=== PATIENT | male | born 1995 | race Caucasian/White ===

== ENCOUNTER 2017-07-27 01:18 | Emergency (ER) | payer OTHER ==
--- NOTE | 2017-07-27 02:12 | EDPHYS ---
Physician Documentation [facility] Name: Rob Parrsih Age: 21 yrs Sex: Male : 1995 Arrival Date: 07/27/2017 Time: 01:22 Bed 14 Private MD: Stephane Banda R ED Physician Justice Baldwin HPI: 07/27 02:09 This 21 yrs old Male presents to ER via Ambulatory with complaints of kb Toothache, Vomiting. 02:09 The patient presents with pain. The problem is located in the lower left third molar kb (#17) and upper left third molar (#16). Onset: The symptoms/episode began/occurred yesterday, at 15:00. Duration: The symptoms are continuous, and are steadily getting worse. Modifying factors: The symptoms are alleviated by nothing, the symptoms are aggravated by nothing. Associated signs and symptoms: Pertinent positives: pain, vomiting, Pertinent negatives: anorexia, chills, dysphagia, fever, inability to eat, nausea, redness in area, swelling. Severity of symptoms: At their worst the symptoms were severe, in the emergency department the symptoms are unchanged. The patient has experienced a previous episode. The patient has not recently seen a physician. Pt states his wisdom teeth are growing in sideways. Was told to have them removed but hasn't been able to yet. STarted having pain at 1500 yesterday, ate ice cream to see if that would help, but it made it worse. . Historical: - Allergies: 02:00 No Known Allergies; bb - Home Meds: 02:00 None [Active]; bb - PMHx: 02:00 None; bb - PSHx: 02:00 None; bb - Immunization history:: Adult Immunizations up to date. - Social history:: Smoking status: Patient uses tobacco products, smokes one pack cigarettes per day. Patient/guardian denies using alcohol, street drugs. ROS: 02:08 Constitutional: Negative for fever, chills, and weight loss, Cardiovascular: Negative kb for chest pain, palpitations, and edema, Respiratory: Negative for shortness of breath, cough, wheezing, and pleuritic chest pain, Abdomen/GI: Negative for abdominal pain, nausea, vomiting, diarrhea, and constipation, MS/Extremity: Negative for injury and deformity, Skin: Negative for injury, rash, and discoloration, Neuro: Negative for headache, weakness, numbness, tingling, and seizure. 02:08 ENT: Positive for dental pain, Negative for sore throat. Exam: 02:08 Constitutional: This is a well developed, well nourished patient who is awake, alert, kb and in no acute distress. Head/Face: Normocephalic, atraumatic. Chest/axilla: Normal chest wall appearance and motion. Nontender with no deformity. No lesions are appreciated. Cardiovascular: Regular rate and rhythm with a normal S1 and S2. No gallops, murmurs, or rubs. Normal PMI, no JVD. No pulse deficits. Respiratory: Lungs have equal breath sounds bilaterally, clear to auscultation and percussion. No rales, rhonchi or wheezes noted. No increased work of breathing, no retractions or nasal flaring. Abdomen/GI: Soft, non-tender, with normal bowel sounds. No distension or tympany. No guarding or rebound. No evidence of tenderness throughout. Skin: Warm, dry with normal turgor. Normal color with no rashes, no lesions, and no evidence of cellulitis. MS/ Extremity: Pulses equal, no cyanosis. Neurovascular intact. Full, normal range of motion. Neuro: Awake and alert, GCS 15, oriented to person, place, time, and situation. Cranial nerves II-XII grossly intact. Motor strength 5/5 in all extremities. Sensory grossly intact. Cerebellar exam normal. Normal gait. 02:08 ENT: Dental exam: pain, that is moderate, specifically in the upper left third molar (#16) and lower left third molar (#17). Vital Signs: 02:00 BP 130 / 78; Pulse 76; Resp 18; Temp 98.1(O); Pulse Ox 98% on R/A; Weight 116.57 kg bb (R); Height 5 ft. 8 in. (172.72 cm) (R); Pain 8/10; 02:00 Body Mass Index 39.08 (116.57 kg, 172.72 cm) bb MDM: 02:02 Patient medically screened. kb 02:08 Data reviewed: vital signs, nurses notes. Data interpreted: Pulse oximetry: on room air kb is 98 %. Interpretation: normal. Counseling: I had a detailed discussion with the patient and/or guardian regarding: the historical points, exam findings, and any diagnostic results supporting the discharge/admit diagnosis, the need for outpatient follow up, a dentist, to return to the emergency department if symptoms worsen or persist or if there are any questions or concerns that arise at home. Administered Medications: 02:42 Drug: Alsey (7.5 mg-325 mg) 1 tabs Route: PO; jd3 02:42 Follow up: Response: Medication administered at discharge. jd3 Disposition: 07/27/17 02:11 Discharged to Home. Impression: Toothache. - Condition is Stable. - Discharge Instructions: Dental Pain, [id number]. - Work release form, Medication Reconciliation Form, Thank You Letter, Antibiotic Education, Prescription Opioid Use form. - Follow up: Emergency Department; When: As needed; Reason: Worsening of condition. Follow up: Private Physician; When: 2 - 3 days; Reason: Recheck today's complaints, Continuance of care, Re-evaluation by your physician. Addendum: 07/28/2017 19:01 Co-signature as Attending Physician, Justice Baldwin MD I agree with the assessment and c power plan of care. Signatures: Ivone Roach, SHRIMP CLEANER-C SHRIMP CLEANER-Ckb Justice Baldwin MD MD cha Ballard, Brenda, RN RN Viktor Denise RN RN jd3
--- NOTE | 2017-07-27 02:12 | ER ---
Nurse's Notes [facility] Name: Rob Parrish Age: 21 yrs Sex: Male : 1995 Arrival Date: 07/27/2017 Time: 01:22 Bed 14 Private MD: Stephane Banda R Diagnosis: Toothache Presentation: 07/27 01:59 Presenting complaint: Patient states: he has a toothache so bad it is causing him to bb vomit, pain is on the left side and is 8/10. Transition of care: patient was not received from another setting of care. Onset of symptoms was July 26, 2017. Initial Sepsis Screen: Does the patient meet any 2 criteria? No. Patient's initial sepsis screen is negative. Does the patient have a suspected source of infection? No. Patient's initial sepsis screen is negative. Care prior to arrival: None. 01:59 Method Of Arrival: Ambulatory bb 01:59 Acuity: ARLEY 5 bb Historical: - Allergies: 02:00 No Known Allergies; bb - Home Meds: 02:00 None [Active]; bb - PMHx: 02:00 None; bb - PSHx: 02:00 None; bb - Immunization history:: Adult Immunizations up to date. - Social history:: Smoking status: Patient uses tobacco products, smokes one pack cigarettes per day. Patient/guardian denies using alcohol, street drugs. Screenin:07 Abuse screen: Denies threats or abuse. Nutritional screening: No deficits noted. jd3 Tuberculosis screening: No symptoms or risk factors identified. Fall Risk None identified. Assessment: 02:03 General: Appears in no apparent distress. uncomfortable, Behavior is calm, cooperative, jd3 appropriate for age. Pain: Complains of pain in mouth Quality of pain is described as aching, sharp. Neuro: Level of Consciousness is awake, alert, obeys commands, Oriented to person, place, time, situation. Cardiovascular: Heart tones S1 S2 present Capillary refill < 3 seconds Patient's skin is warm and dry. Respiratory: Airway is patent Respiratory effort is even, unlabored, Respiratory pattern is regular, symmetrical, Breath sounds are clear bilaterally. GI: Abdomen is round Bowel sounds present X 4 quads. Abd is soft and non tender X 4 quads. Reports nausea. : No signs and/or symptoms were reported regarding the genitourinary system. EENT: Reports being seen by a dentist about 1 year ago and was told he needed his wisdom teeth removed. pt reports not being able to see a dentist again for a fallow up/surgery.. Derm: Skin is intact, Skin is dry, Skin is normal, Skin temperature is warm. Musculoskeletal: Circulation, motion, and sensation intact. Range of motion: intact in all extremities. 02:45 Reassessment: Patient appears in no apparent distress at this time. Patient and/or jd3 family updated on plan of care and expected duration. Pain level reassessed. Patient is alert, oriented x 3, equal unlabored respirations, skin warm/dry/pink. pt reported understanding of discharge instructions, even and steady gait upon discharge. Vital Signs: 02:00 BP 130 / 78; Pulse 76; Resp 18; Temp 98.1(O); Pulse Ox 98% on R/A; Weight 116.57 kg bb (R); Height 5 ft. 8 in. (172.72 cm) (R); Pain 8/10; 02:00 Body Mass Index 39.08 (116.57 kg, 172.72 cm) bb ED Course: 01:22 Patient arrived in ED. do 01:22 Stephane Banda MD is Private Physician. do 02:00 Triage completed. bb 02:00 Arm band placed on Patient placed in an exam room, on a stretcher. Family accompanied bb patient. 02:02 Ivone Roach [facility]C [facility]. kb 02:02 Justice Baldwin MD is Attending Physician. kb 02:03 Viktor Reynoso RN is Primary Nurse. jd3 02:08 Patient has correct armband on for positive identification. Bed in low position. Call jd3 light in reach. Side rails up X 1. Adult w/ patient. 02:44 No provider procedures requiring assistance completed. Patient did not have IV access jd3 during this emergency room visit. Administered Medications: 02:42 Drug: Garden (7.5 mg-325 mg) 1 tabs Route: PO; jd3 02:42 Follow up: Response: Medication administered at discharge. jd3 Outcome: 02:11 Discharge ordered by . kb 02:45 Discharged to home ambulatory, with family. jd3 02:45 Condition: stable 02:45 Discharge instructions given to patient, family, Instructed on discharge instructions, follow up and referral plans. Demonstrated understanding of instructions, follow-up care. 02:46 Patient left the ED. jd3 Signatures: Ivone Roach, CRAIG-Karol SRINIVASAN-Erika Babin, RN RN Laura Manzano Jonathon, RN RN jd3
[2017-07-27] MEDS ORDERED: HYDROCODONE/APAP 7.5/325 MG TAB ONE (02:36)
== END 2017-07-27 02:46 | disposition home or self-care (01) ==
LOC: ER 01:18
DX: K08.89 Other specified disorders of teeth and supporting structures (principal); F17.210 Nicotine dependence, cigarettes, uncomplicated
CPT/HCPCS: 99283

== ENCOUNTER 2017-10-25 15:33 | Emergency (ER) | payer OTHER ==
--- NOTE | 2017-10-25 16:30 | ER ---
Nurse's Notes [facility] Name: Rob Parrish Age: 22 yrs Sex: Male : 1995 Arrival Date: 10/25/2017 Time: 15:35 Bed 14 Private MD: Stephane Banda R Diagnosis: Encounter for screening, unspecified Presentation: 10/25 15:36 Presenting complaint: Patient states: got home from work yesterday, when i checked my hj BP, it was high, around 180 SBP; denies headache, nausea and vomiting;. Transition of care: patient was not received from another setting of care. Onset of symptoms was October 25, 2017. Risk Assessment: Do you want to hurt yourself or someone else? Patient reports no desire to harm self or others. Initial Sepsis Screen: Does the patient meet any 2 criteria? No. Patient's initial sepsis screen is negative. Does the patient have a suspected source of infection? No. Patient's initial sepsis screen is negative. Care prior to arrival: None. 15:36 Method Of Arrival: Ambulatory 15:36 Acuity: ARLEY 3 hj Triage Assessment: 15:38 General: Appears in no apparent distress. uncomfortable, Behavior is calm, cooperative, hj appropriate for age. Pain: Denies pain. Historical: - Allergies: 15:38 No Known Allergies; hj - Home Meds: 15:38 None [Active]; hj - PMHx: 15:38 Hypertension; hj - PSHx: 15:38 None; hj - Immunization history:: Adult Immunizations up to date. - Social history:: Smoking status: Patient/guardian denies using tobacco, Patient/guardian denies using alcohol. - Ebola Screening: : Patient negative for fever greater than or equal to 101.5 degrees Fahrenheit, and additional compatible Ebola Virus Disease symptoms Patient denies exposure to infectious person Patient denies travel to an Ebola-affected area in the 21 days before illness onset. Screenin:39 Abuse screen: Denies threats or abuse. Denies injuries from another. Nutritional hj screening: No deficits noted. Tuberculosis screening: No symptoms or risk factors identified. Fall Risk None identified. Assessment: 15:58 General: Appears in no apparent distress. comfortable, Behavior is calm, cooperative, aj appropriate for age. Pain: Denies pain. Neuro: Level of Consciousness is awake, alert, obeys commands, Oriented to person, place, time, situation, Appropriate for age. Respiratory: Airway is patent Respiratory effort is even, unlabored, Respiratory pattern is regular, symmetrical. Derm: Skin is intact, is healthy with good turgor, Skin is pink, warm \T\ dry. normal. Vital Signs: 15:39 BP 133 / 75; Pulse 92; Resp 18; Temp 98.3(O); Pulse Ox 100% on R/A; Weight 68.04 kg; hj Height 5 ft. 8 in. (172.72 cm); Pain 0/10; 15:39 Body Mass Index 22.81 (68.04 kg, 172.72 cm) ED Course: 15:35 Patient arrived in ED. sb2 15:36 Stephane Banda MD is Private Physician. sb2 15:38 Triage completed. hj 15:38 Arm band placed on left wrist. hj 15:38 Patient has correct armband on for positive identification. Bed in low position. Call light in reach. Side rails up X 1. Adult w/ patient. 15:42 Smooth Paieg MD is Attending Physician. 15:57 Leola Black RN is Primary Nurse. aj 16:05 No provider procedures requiring assistance completed. Patient did not have IV access aj during this emergency room visit. Administered Medications: No medications were administered Outcome: 16:05 Medical screen evaluation completed per provider. Patient declined treatment. aj 16:29 Discharge ordered by . 16:31 Patient left the ED. aj Signatures: Leola Black RN RN Maksim Tran RN RN Smooth Paige MD MD Stacie Ruiz sb2 Corrections: (The following items were deleted from the chart) 15:41 15:39 Pulse 92bpm; Resp 18bpm; Pulse Ox 100% RA; Temp 98.3F Oral; 68.04 kg; Height 5 hj ft. 8 in.; BMI: 22.8; Pain 0/10;
--- NOTE | 2017-10-25 16:30 | EDPHYS ---
Physician Documentation [facility] Name: Rob Parrish Age: 22 yrs Sex: Male : 1995 Arrival Date: 10/25/2017 Time: 15:35 Bed 14 Private MD: Stephane Banda R ED Physician Smooth Paige HPI: 10/25 16:47 This 22 yrs old Male presents to ER via Ambulatory with complaints of High gs Blood Pressure. 16:47 The patient has elevated blood pressure and discovered this during work physical. gs Onset: The symptoms/episode began/occurred 2 day(s) ago. Modifying factors: The symptoms are aggravated by activity. Associated signs and symptoms: Pertinent negatives: chest pain, dizziness, dyspnea, headache. Severity of symptoms: At its worst the blood pressure was severe, 2 day(s) ago, in the emergency department the blood pressure is improved, markedly. The patient has experienced similar episodes in the past, a few times. Historical: - Allergies: 15:38 No Known Allergies; hj - Home Meds: 15:38 None [Active]; hj - PMHx: 15:38 Hypertension; hj - PSHx: 15:38 None; hj - Immunization history:: Adult Immunizations up to date. - Social history:: Smoking status: Patient/guardian denies using tobacco, Patient/guardian denies using alcohol. - Ebola Screening: : Patient negative for fever greater than or equal to 101.5 degrees Fahrenheit, and additional compatible Ebola Virus Disease symptoms Patient denies exposure to infectious person Patient denies travel to an Ebola-affected area in the 21 days before illness onset. ROS: 16:47 All other systems are negative. gs Exam: 16:47 Head/Face: Normocephalic, atraumatic. Eyes: Pupils equal round and reactive to light, gs extra-ocular motions intact. Lids and lashes normal. Conjunctiva and sclera are non-icteric and not injected. Cornea within normal limits. Periorbital areas with no swelling, redness, or edema. ENT: Nares patent. No nasal discharge, no septal abnormalities noted. Tympanic membranes are normal and external auditory canals are clear. Oropharynx with no redness, swelling, or masses, exudates, or evidence of obstruction, uvula midline. Mucous membranes moist. Neck: Trachea midline, no thyromegaly or masses palpated, and no cervical lymphadenopathy. Supple, full range of motion without nuchal rigidity, or vertebral point tenderness. No Meningismus. Chest/axilla: Normal chest wall appearance and motion. Nontender with no deformity. No lesions are appreciated. Cardiovascular: Regular rate and rhythm with a normal S1 and S2. No gallops, murmurs, or rubs. Normal PMI, no JVD. No pulse deficits. Respiratory: Lungs have equal breath sounds bilaterally, clear to auscultation and percussion. No rales, rhonchi or wheezes noted. No increased work of breathing, no retractions or nasal flaring. Abdomen/GI: Soft, non-tender, with normal bowel sounds. No distension or tympany. No guarding or rebound. No evidence of tenderness throughout. Back: No spinal tenderness. No costovertebral tenderness. Full range of motion. Skin: Warm, dry with normal turgor. Normal color with no rashes, no lesions, and no evidence of cellulitis. MS/ Extremity: Pulses equal, no cyanosis. Neurovascular intact. Full, normal range of motion. Neuro: Awake and alert, GCS 15, oriented to person, place, time, and situation. Cranial nerves II-XII grossly intact. Motor strength 5/5 in all extremities. Sensory grossly intact. Cerebellar exam normal. Normal gait. 16:47 Constitutional: The patient appears alert, awake. Vital Signs: 15:39 BP 133 / 75; Pulse 92; Resp 18; Temp 98.3(O); Pulse Ox 100% on R/A; Weight 68.04 kg; Height 5 ft. 8 in. (172.72 cm); Pain 0/10; 15:39 Body Mass Index 22.81 (68.04 kg, 172.72 cm) MDM: 15:54 Patient medically screened. 16:47 Differential diagnosis: hypertensive crisis, Malignant HTN. Data reviewed: vital signs, nurses notes. Response to treatment: the patient's symptoms have markedly improved after treatment, and as a result, I will discharge patient. 16:47 ED course: pt requested signing rtw form pt attested to being able to perform all gs duties and safety rules. . Administered Medications: No medications were administered Disposition: 10/25/17 16:29 Discharged to Home. Impression: Encounter for screening, unspecified. - Condition is Stable. - Discharge Instructions: Managing Your High Blood Pressure. - Medication Reconciliation Form, Thank You Letter, Antibiotic Education, Prescription Opioid Use form. - Follow up: Private Physician; When: 2 - 3 days; Reason: Re-evaluation by your physician. Signatures: Leola Black RN RN aj Joaquin, Henry, RN RN hj Starr, Gregory, MD MD gs Corrections: (The following items were deleted from the chart) 16:31 16:29 10/25/2017 16:29 Discharged to Home. Impression: Encounter for screening, aj unspecified. Condition is Stable. Forms are Medication Reconciliation Form, Thank You Letter, Antibiotic Education, Prescription Opioid Use. Follow up: Private Physician; When: 2 - 3 days; Reason: Re-evaluation by your physician. gs
== END 2017-10-25 16:31 | disposition home or self-care (01) ==
LOC: ER 15:33
DX: I10 Essential (primary) hypertension (principal)
CPT/HCPCS: 99281

== ENCOUNTER 2017-11-20 14:00 | Emergency (ER) | payer OTHER ==
--- NOTE | 2017-11-20 15:21 | EDPHYS ---
Physician Documentation [facility] Name: Rob Parrish Age: 22 yrs Sex: Male : 1995 Arrival Date: 11/20/2017 Time: 14:03 Bed 12 Private MD: Stephane Banda R ED Physician Jadiel Valentino HPI: 11/20 15:19 This 22 yrs old Male presents to ER via Ambulatory with complaints of Needs pm1 work note. 15:19 Patient with complaints of headache and weakness at work on Tuesday. Patient has had pm1 similar headaches in the past. Patient's symptoms have resolved and he is presenting to the ER for a work release to return to work tomorrow. Patient has no complaints. Historical: - Allergies: 14:26 No Known Allergies; hb - PMHx: 14:26 Hypertension; hb - PSHx: 14:26 None; hb - Immunization history:: Adult Immunizations not up to date. - Social history:: Smoking status: Patient/guardian denies using tobacco. - Ebola Screening: : Patient negative for fever greater than or equal to 101.5 degrees Fahrenheit, and additional compatible Ebola Virus Disease symptoms Patient denies exposure to infectious person Patient denies travel to an Ebola-affected area in the 21 days before illness onset No symptoms or risks identified at this time. ROS: 15:19 Constitutional: Negative for fever, chills, and weight loss, Eyes: Negative for injury, pm1 pain, redness, and discharge, ENT: Negative for injury, pain, and discharge, Neck: Negative for injury, pain, and swelling, Cardiovascular: Negative for chest pain, palpitations, and edema, Respiratory: Negative for shortness of breath, cough, wheezing, and pleuritic chest pain, Abdomen/GI: Negative for abdominal pain, nausea, vomiting, diarrhea, and constipation, Back: Negative for injury and pain, : Negative for injury, bleeding, discharge, and swelling, MS/Extremity: Negative for injury and deformity, Skin: Negative for injury, rash, and discoloration, Neuro: Negative for headache, weakness, numbness, tingling, and seizure. Exam: 15:19 Constitutional: This is a well developed, well nourished patient who is awake, alert, pm1 and in no acute distress. Head/Face: Normocephalic, atraumatic. Eyes: Pupils equal round and reactive to light, extra-ocular motions intact. Lids and lashes normal. Conjunctiva and sclera are non-icteric and not injected. Cornea within normal limits. Periorbital areas with no swelling, redness, or edema. ENT: Nares patent. No nasal discharge, no septal abnormalities noted. Tympanic membranes are normal and external auditory canals are clear. Oropharynx with no redness, swelling, or masses, exudates, or evidence of obstruction, uvula midline. Mucous membranes moist. Neck: Trachea midline, no thyromegaly or masses palpated, and no cervical lymphadenopathy. Supple, full range of motion without nuchal rigidity, or vertebral point tenderness. No Meningismus. Chest/axilla: Normal chest wall appearance and motion. Nontender with no deformity. No lesions are appreciated. Cardiovascular: Regular rate and rhythm with a normal S1 and S2. No gallops, murmurs, or rubs. Normal PMI, no JVD. No pulse deficits. Respiratory: Lungs have equal breath sounds bilaterally, clear to auscultation and percussion. No rales, rhonchi or wheezes noted. No increased work of breathing, no retractions or nasal flaring. Abdomen/GI: Soft, non-tender, with normal bowel sounds. No distension or tympany. No guarding or rebound. No evidence of tenderness throughout. Back: No spinal tenderness. No costovertebral tenderness. Full range of motion. Skin: Warm, dry with normal turgor. Normal color with no rashes, no lesions, and no evidence of cellulitis. MS/ Extremity: Pulses equal, no cyanosis. Neurovascular intact. Full, normal range of motion. 15:19 Neuro: Orientation: is normal, Cranial nerves: CN II- XII are normal as tested, Cerebellar function: normal finger to nose testing, Motor: is normal, moves all fours, Sensation: is normal, no obvious gross deficits, Gait: is steady, at a normal pace, without difficulty. Vital Signs: 14:31 BP 144 / 79; Pulse 90; Resp 16; Temp 98.4; Pulse Ox 100% on R/A; Pain 0/10; hb MDM: 14:56 Patient medically screened. pm1 15:19 Data reviewed: vital signs. Data interpreted: Pulse oximetry: on room air is 100 %. pm1 Interpretation: normal. Counseling: I had a detailed discussion with the patient and/or guardian regarding: the historical points, exam findings, and any diagnostic results supporting the discharge/admit diagnosis, the need for outpatient follow up, to return to the emergency department if symptoms worsen or persist or if there are any questions or concerns that arise at home. Administered Medications: No medications were administered Disposition: 17:51 Co-signature as Attending Physician, Jadiel Valentino MD. rn Disposition: 11/20/17 15:20 Discharged to Home. Impression: Encounter for medical screening. - Condition is Stable. - Work release form, Medication Reconciliation Form, Thank You Letter form. - Follow up: Private Physician; When: 2 - 3 days; Reason: Recheck today's complaints, Continuance of care, Re-evaluation by your physician. - Problem is new. - Symptoms have improved. Signatures: Jadiel Valentino MD MD rn Douglas Pereira, FIRE SAFETY INSPECTOR FIRE SAFETY INSPECTOR pm1 Teetee Smith RN RN hb Corrections: (The following items were deleted from the chart) 15:21 15:20 11/20/2017 15:20 Discharged to Home. Impression: Encounter for general adult pm1 medical examination without abnormal findings. Condition is Stable. Forms are Medication Reconciliation Form, Thank You Letter, Antibiotic Education, Prescription Opioid Use. Follow up: Private Physician; When: 2 - 3 days; Reason: Recheck today's complaints, Continuance of care, Re-evaluation by your physician. Problem is new. Symptoms have improved. pm1 15:30 15:21 11/20/2017 15:20 Discharged to Home. Impression: Encounter for medical screening. hb Condition is Stable. Forms are Medication Reconciliation Form, Thank You Letter, Antibiotic Education, Prescription Opioid Use. Follow up: Private Physician; When: 2 - 3 days; Reason: Recheck today's complaints, Continuance of care, Re-evaluation by your physician. Problem is new. Symptoms have improved. pm1
--- NOTE | 2017-11-20 15:21 | ER ---
Nurse's Notes [facility] Name: Rob Parrish Age: 22 yrs Sex: Male : 1995 Arrival Date: 11/20/2017 Time: 14:03 Bed 12 Private MD: Stephane Banda R Diagnosis: Encounter for medical screening Presentation: 11/20 14:31 Presenting complaint: Patient states: Sent home from work [employer] J with headache and hb weakness, needs return to work note. Transition of care: patient was not received from another setting of care. Onset of symptoms was November 20, 2017. Risk Assessment: Do you want to hurt yourself or someone else? Patient reports no desire to harm self or others. Care prior to arrival: None. 14:31 Method Of Arrival: Ambulatory hb 14:31 Acuity: ARLEY 5 hb 14:55 Initial Sepsis Screen: Does the patient meet any 2 criteria? No. Patient's initial hb sepsis screen is negative. Does the patient have a suspected source of infection? No. Patient's initial sepsis screen is negative. Historical: - Allergies: 14:26 No Known Allergies; hb - PMHx: 14:26 Hypertension; hb - PSHx: 14:26 None; hb - Immunization history:: Adult Immunizations not up to date. - Social history:: Smoking status: Patient/guardian denies using tobacco. - Ebola Screening: : Patient negative for fever greater than or equal to 101.5 degrees Fahrenheit, and additional compatible Ebola Virus Disease symptoms Patient denies exposure to infectious person Patient denies travel to an Ebola-affected area in the 21 days before illness onset No symptoms or risks identified at this time. Screenin:55 Abuse screen: Denies threats or abuse. Denies injuries from another. Nutritional hb screening: No deficits noted. Tuberculosis screening: No symptoms or risk factors identified. Fall Risk None identified. Assessment: 14:45 General: Appears in no apparent distress. Behavior is calm, cooperative. Pain: Denies hb pain. Neuro: Level of Consciousness is awake, alert, obeys commands, Oriented to person, place, time, situation. Cardiovascular: Capillary refill < 3 seconds Patient's skin is warm and dry. Respiratory: Airway is patent Trachea midline Respiratory effort is even, unlabored, Respiratory pattern is regular, symmetrical. Vital Signs: 14:31 BP 144 / 79; Pulse 90; Resp 16; Temp 98.4; Pulse Ox 100% on R/A; Pain 0/10; hb ED Course: 14:03 Patient arrived in ED. sb2 14:03 Stephane Banda MD is Private Physician. sb2 14:26 Arm band placed on. hb 14:31 Triage completed. hb 14:54 Teetee Smith, RN is Primary Nurse. hb 14:55 Douglas Pereira NP [facility]. pm1 14:55 Jadiel Valentino MD is Attending Physician. pm1 14:55 Patient has correct armband on for positive identification. Call light in reach. hb 15:29 No provider procedures requiring assistance completed. Patient did not have IV access hb during this emergency room visit. Administered Medications: No medications were administered Outcome: 15:20 Discharge ordered by . pm1 15:29 Discharged to home ambulatory. hb 15:29 Condition: stable 15:29 Discharge instructions given to patient, Instructed on discharge instructions, follow up and referral plans. medication usage, Demonstrated understanding of instructions, follow-up care. 15:30 Patient left the ED. hb Signatures: Douglas Pereira NP STITCHER HAND pm1 Teetee Smith, RN RN RasheedabrilStacie hoskins sb2
== END 2017-11-20 15:30 | disposition home or self-care (01) ==
LOC: ER 14:00
DX: Z00.00 Encounter for general adult medical examination without abnormal findings (principal); I10 Essential (primary) hypertension
CPT/HCPCS: 99281

== ENCOUNTER 2018-05-20 16:53 | Emergency (ER) | payer OTHER ==
--- NOTE | 2018-05-20 17:16 | ER ---
Nurse's Notes [facility] Name: Rob Parrish Age: 22 yrs Sex: Male : 1995 Arrival Date: 05/20/2018 Time: 16:55 Bed Waiting Private MD: Stephane Banda R Diagnosis: Toothache Presentation: 05/20 17:00 Presenting complaint: Patient states: dental pain for 30 minutes. Transition of care: la1 patient was not received from another setting of care. Onset of symptoms was May 20, 2018. Risk Assessment: Do you want to hurt yourself or someone else? Patient reports no desire to harm self or others. Initial Sepsis Screen: Does the patient meet any 2 criteria? No. Patient's initial sepsis screen is negative. Does the patient have a suspected source of infection? No. Patient's initial sepsis screen is negative. Care prior to arrival: None. 17:00 Method Of Arrival: Ambulatory la1 17:00 Acuity: ARLEY 5 la1 Historical: - Allergies: 17:00 No Known Allergies; la1 - PMHx: 17:00 Hypertension; la1 - Immunization history:: Adult Immunizations up to date. - Social history:: Smoking status: Patient uses tobacco products, smokes one pack cigarettes per day. - Ebola Screening: : No symptoms or risks identified at this time. Screenin:02 Abuse screen: Denies threats or abuse. Nutritional screening: No deficits noted. la1 Tuberculosis screening: No symptoms or risk factors identified. Fall Risk None identified. Assessment: 17:01 General: Appears in no apparent distress. Behavior is calm, cooperative. Pain: la1 Complains of pain in upper right third molar. Neuro: Level of Consciousness is awake, alert, obeys commands. Cardiovascular: Capillary refill < 3 seconds Patient's skin is warm and dry. Respiratory: Airway is patent Respiratory effort is even, unlabored. EENT: Good dentition noted. Vital Signs: 17:00 BP 154 / 102; Pulse 90; Resp 16; Temp 97.5; Pulse Ox 98% on R/A; Weight 113.4 kg; la1 Height 5 ft. 8 in. (172.72 cm); 17:00 Body Mass Index 38.01 (113.40 kg, 172.72 cm) la1 ED Course: 16:55 Patient arrived in ED. sb2 16:55 Stephane Banda MD is Private Physician. sb2 16:56 Ivone Roach FNP-C is [facility]. kb 16:56 Jadiel Valentino MD is Attending Physician. kb 17:00 Triage completed. la1 17:00 Arm band placed on left wrist. la1 17:02 Patient has correct armband on for positive identification. la1 17:02 No provider procedures requiring assistance completed. Patient did not have IV access la1 during this emergency room visit. Administered Medications: 17:20 Drug: Augmentin 875 mg Route: PO; hb 17:20 Drug: [place] 5 mg-325 mg 1 tabs Route: PO; hb Outcome: 17:02 Discharged to home ambulatory. la1 17:02 Condition: stable 17:02 Discharge instructions given to patient, Instructed on discharge instructions, follow up and referral plans. medication usage, Demonstrated understanding of instructions, follow-up care, medications, Prescriptions given X 2. 17:15 Discharge ordered by MD. kb 17:21 Patient left the ED. hb Signatures: Ivone Roach FNP-C FNP-Seferino Garner, RN RN la1 Teetee Smith, RN RN Stacie Ruiz sb2
--- NOTE | 2018-05-20 17:17 | EDPHYS ---
Physician Documentation [facility] Name: Rob Parrish Age: 22 yrs Sex: Male : 1995 Arrival Date: 05/20/2018 Time: 16:55 Bed Waiting Private MD: Stephane Banda R ED Physician Jadiel Valentino HPI: 05/20 17:14 This 22 yrs old Male presents to ER via Ambulatory with complaints of kb Toothache. 17:14 The patient presents with pain, redness. The problem is located in the upper right kb third molar. Onset: The symptoms/episode began/occurred suddenly, 30 minute(s) ago. Duration: The symptoms are continuous. Modifying factors: The symptoms are alleviated by nothing, the symptoms are aggravated by nothing. Associated signs and symptoms: Pertinent positives: redness in area, vomiting. Severity of symptoms: At their worst the symptoms were mild, moderate, in the emergency department the symptoms are unchanged. The patient has experienced similar episodes in the past, a few times. The patient has not recently seen a physician. Historical: - Allergies: 17:00 No Known Allergies; la1 - PMHx: 17:00 Hypertension; la1 - Immunization history:: Adult Immunizations up to date. - Social history:: Smoking status: Patient uses tobacco products, smokes one pack cigarettes per day. - Ebola Screening: : No symptoms or risks identified at this time. ROS: 17:05 Constitutional: Negative for fever, chills, and weight loss, Neck: Negative for injury, kb pain, and swelling, Cardiovascular: Negative for chest pain, palpitations, and edema, Respiratory: Negative for shortness of breath, cough, wheezing, and pleuritic chest pain, Abdomen/GI: Negative for abdominal pain, nausea, vomiting, diarrhea, and constipation, Back: Negative for injury and pain, MS/Extremity: Negative for injury and deformity, Skin: Negative for injury, rash, and discoloration, Neuro: Negative for headache, weakness, numbness, tingling, and seizure. 17:05 ENT: Positive for dental pain. Exam: 17:13 Constitutional: This is a well developed, well nourished patient who is awake, alert, kb and in no acute distress. Head/Face: Normocephalic, atraumatic. ENT: Nares patent. No nasal discharge, no septal abnormalities noted. Tympanic membranes are normal and external auditory canals are clear. Oropharynx with no redness, swelling, or masses, exudates, or evidence of obstruction, uvula midline. Mucous membranes moist. Neck: Trachea midline, no thyromegaly or masses palpated, and no cervical lymphadenopathy. Supple, full range of motion without nuchal rigidity, or vertebral point tenderness. No Meningismus. Chest/axilla: Normal chest wall appearance and motion. Nontender with no deformity. No lesions are appreciated. Cardiovascular: Regular rate and rhythm with a normal S1 and S2. No gallops, murmurs, or rubs. Normal PMI, no JVD. No pulse deficits. Respiratory: Lungs have equal breath sounds bilaterally, clear to auscultation and percussion. No rales, rhonchi or wheezes noted. No increased work of breathing, no retractions or nasal flaring. Abdomen/GI: Soft, non-tender, with normal bowel sounds. No distension or tympany. No guarding or rebound. No evidence of tenderness throughout. Skin: Warm, dry with normal turgor. Normal color with no rashes, no lesions, and no evidence of cellulitis. MS/ Extremity: Pulses equal, no cyanosis. Neurovascular intact. Full, normal range of motion. Neuro: Awake and alert, GCS 15, oriented to person, place, time, and situation. Cranial nerves II-XII grossly intact. Motor strength 5/5 in all extremities. Sensory grossly intact. Cerebellar exam normal. Normal gait. Vital Signs: 17:00 BP 154 / 102; Pulse 90; Resp 16; Temp 97.5; Pulse Ox 98% on R/A; Weight 113.4 kg; la1 Height 5 ft. 8 in. (172.72 cm); 17:00 Body Mass Index 38.01 (113.40 kg, 172.72 cm) la1 MDM: 17:04 Patient medically screened. kb 17:05 Data reviewed: vital signs, nurses notes. Data interpreted: Pulse oximetry: on room air kb is 98 %. Interpretation: normal. Counseling: I had a detailed discussion with the patient and/or guardian regarding: the historical points, exam findings, and any diagnostic results supporting the discharge/admit diagnosis, the need for outpatient follow up, a dentist, to return to the emergency department if symptoms worsen or persist or if there are any questions or concerns that arise at home. Administered Medications: 17:20 Drug: Augmentin 875 mg Route: PO; hb 17:20 Drug: [place] 5 mg-325 mg 1 tabs Route: PO; hb Disposition: 17:27 Co-signature as Attending Physician, Jadiel Valentino MD. rn Disposition: 05/20/18 17:15 Discharged to Home. Impression: Toothache. - Condition is Stable. - Discharge Instructions: Dental Pain, [id number]. - Prescriptions for Augmentin 875- 125 mg Oral Tablet - take 1 tablet by ORAL route every 12 hours for 10 days; 20 tablet. - Medication Reconciliation Form, Thank You Letter, Antibiotic Education, Prescription Opioid Use form. - Follow up: Emergency Department; When: As needed; Reason: Worsening of condition. Follow up: Private Physician; When: 2 - 3 days; Reason: Recheck today's complaints, Continuance of care, Re-evaluation by your physician. Signatures: Ivone Roach, SENIOR SECURITY ENGINEER-C SENIOR SECURITY ENGINEER-Ckb Jadiel Valentino MD MD rn Attema, Lee, RN RN laTeetee Damon RN RN Corrections: (The following items were deleted from the chart) 17:21 17:15 05/20/2018 17:15 Discharged to Home. Impression: Toothache. Condition is Stable. hb Forms are Medication Reconciliation Form, Thank You Letter, Antibiotic Education, Prescription Opioid Use. Follow up: Emergency Department; When: As needed; Reason: Worsening of condition. Follow up: Private Physician; When: 2 - 3 days; Reason: Recheck today's complaints, Continuance of care, Re-evaluation by your physician. kb
[2018-05-20] MEDS ORDERED: HYDROCODONE/APAP 5/325 MG TAB ONE (17:19)
[2018-05-20] MEDS ORDERED: AMOX/K CLAV 875 MG TAB ONE (17:20)
== END 2018-05-20 17:21 | disposition home or self-care (01) ==
LOC: ER 16:53
DX: K08.89 Other specified disorders of teeth and supporting structures (principal); F17.210 Nicotine dependence, cigarettes, uncomplicated
CPT/HCPCS: 99283